=== PATIENT | male | born 1960 | race Caucasian/White ===

== ENCOUNTER → 2024-01-16 10:55 | Outpatient (REF) | payer BC, SELFPAY ==
[2024-01-16 11:59] LABS: % Basophils 1.4 % (0-2); % Eosinophils 6.2 % (0-6); % Immature Granulocytes 0.6 % (0-0.5); % Lymphocytes 28.5 % (20.5-51.1); % Monocytes 13.8 % (1.7-9.3); % Neutrophils 49.5 % (42.2-75.2); Absolute Basophils 0.1 10^3/uL (0-0.2); Absolute Eosinophils 0.3 10^3/uL (0-0.7); Absolute Lymphocytes 1.5 10^3/uL (1.2-3.4); Absolute Monocytes 0.7 10^3/uL (0.1-0.6); Absolute Neutrophils 2.5 10^3/uL (1.4-6.5); Mean Corp Hgb Conc. 34.8 g/dL (33.0-37.0); Mean Corpuscular Hgb 29.8 pg (27.0-31.0); Mean Corpuscular Volume 85.7 fL (80.0-94.0); Nucleated Red Blood Cells % 0 % (-); Platelet Count 196 10^3/uL (130-400); Red Blood Cell Count 5.37 10^6/uL (4.70-6.10); Red Cell Dist. Width 12.2 % (11.5-14.5); Urine Albumin Negative (Neg - Trace); Urine Bilirubin Negative (Negative); Urine Character Clear (Clear); Urine Color Straw; Urine Glucose Negative (Negative); Urine Ketone Negative (Negative); Urine Leukocyte Trace (Negative); Urine Nitrite Negative (Negative); Urine Occult Blood Negative (Negative); Urine Urobilinogen Negative (Neg - 1+); White Blood Cell Count 5.1 10^3/uL (4.8-10.8)
[2024-01-16 12:10] LABS: Urine Bacteria Few (Negative); Urine Red Blood Cell 0-2 /HPF (0-2); Urine Squamous Cell 0-2 /LPF (Few); Urine White Cell 0-2 /HPF (0-5)
[2024-01-16 12:23] LABS: ALT (SGPT) 37 U/L (0-50); AST (SGOT) 30 U/L (17-59); Albumin 4.9 g/dl (3.5-5.0); Alkaline Phosphatase 95 U/L (38-126); Blood Urea Nitrogen 19 mg/dl (9-20); Calcium 9.7 mg/dl (8.4-10.2); Carbon Dioxide 24 mmol/L (22-30); Chloride 101 mmol/L (98-107); Glucose 111 mg/dl (70-99); HDL Cholesterol 74 mg/dl; LDL Cholesterol, Calculated 93 mg/dl; Potassium 5.3 mmol/L (3.5-5.1); Sodium 136 mmol/L (135-145); Total Bilirubin 1.9 mg/dl (0.2-1.3); Total Cholesterol 191 mg/dl (50-199); Triglyceride 122 mg/dl (10-149); Very Low Density Lipoprotein 24 mg/dl (0-30); eGFR > 60.00
[2024-01-16 13:06] LABS: PSA, Total - Screen 1.83 ng/ml (0.0-4.0); TSH 0.88 uIU/ml (0.47-4.68)
[2024-01-17 08:59] LABS: Glycohemoglobin (HgbA1c) 5.6 % (4.0-5.6)
[2024-01-18 03:04] LABS: % Free Testosterone 2.1 % (1.6-2.9); Free Testosterone 63 pg/mL (47-244); Sex Hormone Binding Globulin 25 nmol/L (19-76); Total Testosterone 304 ng/dL (300-720)
== END ==
LOC: REG 10:55
PROVIDERS: ATTENDING PHYSICIAN Internal Medicine
DX: E78.2 Mixed hyperlipidemia (principal); I10 Essential (primary) hypertension; K58.9 Irritable bowel syndrome, unspecified; N52.9 Male erectile dysfunction, unspecified
CPT/HCPCS: 36415; 80053; 80061; 81003; 81015; 83036; 84270; 84402; 84403; 84443; 85025; G0103

== ENCOUNTER → 2025-01-18 09:12 | Outpatient (REF) | payer BC, SELFPAY ==
[2025-01-18 10:27] LABS: % Basophils 1.1 % (0-2); % Eosinophils 5.5 % (0-6); % Immature Granulocytes 0.7 % (0-0.5); % Lymphocytes 24.8 % (20.5-51.1); % Monocytes 13.1 % (1.7-9.3); % Neutrophils 54.8 % (42.2-75.2); Absolute Basophils 0.1 10^3/uL (0-0.2); Absolute Eosinophils 0.2 10^3/uL (0-0.7); Absolute Lymphocytes 1.1 10^3/uL (1.2-3.4); Absolute Monocytes 0.6 10^3/uL (0.1-0.6); Absolute Neutrophils 2.4 10^3/uL (1.4-6.5); Hematocrit 45.5 % (39.0-52.0); Hemoglobin 15.7 g/dL (13.0-18.0); Mean Corp Hgb Conc. 34.5 g/dL (33.0-37.0); Mean Corpuscular Hgb 30.3 pg (27.0-31.0); Mean Corpuscular Volume 87.8 fL (80.0-94.0); Nucleated Red Blood Cells % 0 % (-); Platelet Count 164 10^3/uL (130-400); Red Blood Cell Count 5.18 10^6/uL (4.70-6.10); Red Cell Dist. Width 12.3 % (11.5-14.5); White Blood Cell Count 4.4 10^3/uL (4.8-10.8)
[2025-01-18 10:45] LABS: Urine Albumin 1+ (Neg - Trace); Urine Bilirubin Negative (Negative); Urine Character Clear (Clear); Urine Color Yellow; Urine Glucose Negative (Negative); Urine Ketone Negative (Negative); Urine Leukocyte Negative (Negative); Urine Nitrite Negative (Negative); Urine Occult Blood Negative (Negative); Urine Urobilinogen Negative (Neg - 1+)
[2025-01-18 11:10] LABS: ALT (SGPT) 38 U/L (0-50); AST (SGOT) 29 U/L (17-59); Albumin 4.6 g/dl (3.5-5.0); Alkaline Phosphatase 89 U/L (38-126); Blood Urea Nitrogen 17 mg/dl (9-20); Calcium 9.4 mg/dl (8.4-10.2); Carbon Dioxide 31 mmol/L (22-30); Chloride 100 mmol/L (98-107); Glucose 111 mg/dl (70-99); HDL Cholesterol 74 mg/dl; LDL Cholesterol, Calculated 92 mg/dl; Sodium 139 mmol/L (135-145); Total Bilirubin 1.8 mg/dl (0.2-1.3); Total Cholesterol 194 mg/dl (50-199); Total Protein 7.8 g/dl (6.3-8.2); Triglyceride 141 mg/dl (10-149); Very Low Density Lipoprotein 28 mg/dl (0-30); eGFR > 60.00
[2025-01-18 11:28] LABS: PSA, Total - Screen 1.85 ng/ml (0.0-4.0); TSH 1.48 uIU/ml (0.47-4.68)
[2025-01-18 12:10] LABS: Urine Red Blood Cell 0-2 /HPF (0-2); Urine White Cell 0-2 /HPF (0-5)
[2025-01-18 12:11] LABS: Urine Mucus Few
[2025-01-19 18:24] LABS: Free Testosterone 77 pg/mL (47-244); Sex Hormone Binding Globulin 27 nmol/L (19-76); Total Testosterone 381 ng/dL (300-720)
== END ==
LOC: RAD 09:12
PROVIDERS: ATTENDING PHYSICIAN Internal Medicine
DX: M25.512 Pain in left shoulder (principal); E78.2 Mixed hyperlipidemia; I10 Essential (primary) hypertension; K58.9 Irritable bowel syndrome, unspecified; N52.9 Male erectile dysfunction, unspecified
CPT/HCPCS: 73030; 80053; 80061; 81003; 81015; 84270; 84402; 84403; 84443; 85025; G0103